=== PATIENT | male | born 1945 | race Caucasian/White ===

== ENCOUNTER 2017-07-29 11:08 | Emergency (ER) | payer MEDICARE, MEDICAID ==
[2017-07-29 11:08] VITALS: BMI 29.2
[2017-07-29 11:23] VITALS: PULSE 89; RESP 16; TEMP 98; O2SAT 99
[2017-07-29] MEDS ORDERED: Lidocaine 1% Inj (20ml) INFIL STA (11:47)
[2017-07-29] MEDS ORDERED: Lidocaine 1% Inj (20ml) ONE (11:52)
--- NOTE | 2017-07-29 12:57 | RAD ---
PROCEDURE: Facial bones HISTORY: fall, facial injury, r/o fx COMPARISON: None TECHNIQUE: Standard protocol for this study/examination. FINDINGS: No visible facial bone fractures or other pathologic findings. IMPRESSION: No acute findings related to/accounting for the clinical presentation.
--- NOTE | 2017-07-29 13:00 | C.PDOC ---
History Of Present Illness 71-year-old male, presents to the emergency department with complaints of mechanical fall yesterday. Patient fell on face and sustained a laceration to lip and chin. Denies any loss of consciousness, dizziness, visual changes, nausea/vomiting or any other associated symptoms. No other complaints at this time. Tetanus vaccine is up to date. Time Seen by Provider: 07/29/17 11:23 Chief Complaint (Nursing): Abnormal Skin Integrity History Per: Patient History/Exam Limitations: no limitations Past Medical History Reviewed: Historical Data, Nursing Documentation, Vital Signs Vital Signs: Last Vital Signs Temp 98 F 07/29/17 11:16 Pulse 89 07/29/17 11:16 Resp 16 07/29/17 11:16 BP 190/84 H 07/29/17 12:51 Pulse Ox 99 07/29/17 18:01 - Medical History PMH: Arthritis, CAD, HTN, Hypercholesterolemia - [facility] Procedures OTHER SKIN & SUBQ I D (12/24/12) TETANUS TOXOID ADMINIST (12/24/12) Family History: States: No Known Family Hx - Social History Hx Tobacco Use: No Hx Alcohol Use: Yes Hx Substance Use: No - Immunization History Hx Tetanus Toxoid Vaccination: Yes (12/24/2012) Hx Influenza Vaccination: No Hx Pneumococcal Vaccination: No Review Of Systems Cardiovascular: Negative for: Chest Pain Respiratory: Negative for: Shortness of Breath Gastrointestinal: Negative for: Vomiting Musculoskeletal: Negative for: Neck Pain, Back Pain Skin: Positive for: Other (laceration s/p fall) Neurological: Negative for: Weakness, Numbness, Altered Mental Status, Headache , Dizziness Physical Exam - Physical Exam Appears: Non-toxic, No Acute Distress Skin: Warm, Dry, No Rash Head: Normacephalic, Laceration (Left chin with 1cm laceration) Eye(s): bilateral: Normal Inspection, PERRL, EOMI Nose: Epistaxis, Other (dried blood in nares. No septal hematoma. ) Oral Mucosa: Moist Lips: Laceration (upper lip w/ .5cm laceration. No intraoral lacerations in mouth. No dental fractures. ) Teeth: No Tender To Palpation Throat: Other (No blood visualized in posterior oropharynx) Neck: Normal ROM, Supple Chest: Symmetrical Cardiovascular: Rhythm Regular, No Murmur Respiratory: Normal Breath Sounds, No Accessory Muscle Use Extremity: Normal ROM Neurological/Psych: Oriented x3, Normal Speech (no focal deficit) ED Course And Treatment O2 Sat by Pulse Oximetry: 99 (on RA) Pulse Ox Interpretation: Normal Progress Note: CT Head and XR facial bones ordered and reviewed. Patient treated with Tylenol. Patient will be discharged to f/u outpatient with ENT. Laceration - Laceration Repair Lip Wound Length (In cm): 0.5 Description Of Wound: Linear Anesthesia: Lidocaine 1% Wound Examination: Irrigated With Saline, No FB With Wound Exploration Wound Closure: Suture (1) Suture Technique And Material Used: Vicryl (5-O) Chin Description Of Wound: Linear Anesthesia: Lidocaine 1% Wound Examination: No FB With Wound Exploration Wound Closure: Suture (1) Suture Technique And Material Used: Nylon (dermal 4-O), Vicryl (subcutaneous 5- O. ) Wound Complexity: Simple Disposition Counseled Patient/Family Regarding: Diagnosis, Need For Followup, Rx Given - Disposition Referrals: Allan Sanchez MD [Medical Doctor] - Butch Saleh MD [Staff Provider] - Disposition: HOME/ ROUTINE Disposition Time: 13:40 Condition: STABLE Additional Instructions: SEGUIMIENTO CON ESPECIALISTA DE GARGANT[place] DE OJOS DE ODO DENTRO DE 1 SEMANA USE MEDICAMENTO SEGN SEA NECESARIO, FINALICE LOS ANTIBITICOS REGRESE AL BRAVO DE EMERGENCIA SI LOS SNTOMAS EMPEORAN Prescriptions: Acetaminophen with Codeine [Tylenol with Codeine #3 Tablet] 1 each PO Q6 PRN # 15 tablet PRN Reason: pain Amoxicillin/Clavulanate [Augmentin 875 MG-125 MG] 1 tab PO BID #14 tab Instructions: Care For Your Stitches (ED), Nosebleed (ED), Facial Laceration ( ED) Forms: [employer] (Italian) Print Language: ITALIAN - POA Present On Arrival: Falls Or Trauma - Clinical Impression Clinical Impression: Lip laceration, Laceration of chin, Epistaxis, Fall - Scribe Statement The provider has reviewed the documentation as recorded by the Scribe (Maddie Monzon) All medical record entries made by the Scribe were at my direction and personally dictated by me. I have reviewed the chart and agree that the record accurately reflects my personal performance of the history, physical exam, medical decision making, and the department course for this patient. I have also personally directed, reviewed, and agree with the discharge instructions and disposition. Provider Attestation: All medical record entries made by the Scribe were at my direction and personally dictated by me. I have reviewed the chart and agree that the record accurately reflects my personal performance of the history, physical exam, medical decision making, and the department course for this patient. I have also personally directed, reviewed, and agree with the discharge instructions and disposition.
--- NOTE | 2017-07-29 13:01 | CT ---
PROCEDURE: CT HEAD WITHOUT CONTRAST. HISTORY: head injury after fall COMPARISON: None available. TECHNIQUE: Axial computed tomography images were obtained through the head/brain without intravenous contrast. Radiation dose: Total exam DLP = 938.64 mGy-cm. This CT exam was performed using one or more of the following dose reduction techniques: Automated exposure control, adjustment of the mA and/or kV according to patient size, and/or use of iterative reconstruction technique. FINDINGS: HEMORRHAGE: No intracranial hemorrhage. BRAIN: No mass effect or edema. No atrophy or chronic microvascular ischemic changes. VENTRICLES: Unremarkable. No hydrocephalus. CALVARIUM: Unremarkable. PARANASAL SINUSES: Unremarkable as visualized. No significant inflammatory changes. MASTOID AIR CELLS: Unremarkable as visualized. No inflammatory changes. OTHER FINDINGS: None. IMPRESSION: No acute intracranial abnormalities. No significant findings to account for the clinical presentation.
[2017-07-29 13:11] VITALS: BP 190/84
[2017-07-29] MEDS ORDERED: Phenylephrine 1% Nasal Spray (15 ml) NAS STA (13:24)
[2017-07-29] MEDS ORDERED: Amoxicillin-Clav 875-125 mg Tab PO STA (13:25)
[2017-07-29] MEDS ORDERED: Amoxicillin-Clav 875-125 mg Tab PO ONE (13:29)
[2017-07-29] MEDS ORDERED: Phenylephrine 1% Nasal Spray (15 ml) ONE (13:30)
[2017-07-29] MEDS ORDERED: Bacitracin 500 Units/gm Oint Foilpak UD TOP ONE (13:38)
[2017-07-29] MEDS ORDERED: Bacitracin 500 Units/gm Oint Foilpak UD ONE (13:46)
== END 2017-07-29 13:56 | disposition home or self-care (01) ==
LOC: C.ER 11:08
DX: S01.511A Laceration without foreign body of lip, initial encounter (principal); S01.81XA Laceration without foreign body of other part of head, initial encounter; W18.30XA Fall on same level, unspecified, initial encounter; R04.0 Epistaxis; I10 Essential (primary) hypertension; E78.00 Pure hypercholesterolemia, unspecified; I25.10 Atherosclerotic heart disease of native coronary artery without angina pectoris

== ENCOUNTER 2018-06-10 04:21 | Emergency (ER) | payer MEDICARE, MEDICAID ==
[2018-06-10 04:21] VITALS: BMI 29.2
--- NOTE | 2018-06-10 04:54 | C.PDOC ---
History Of Present Illness 72-year-old male presents to the ED complaining of right knee pain and swelling, ongoing for months but worsened tonight. Patient denies recent trauma or fall. He states he previously injured the knee in July, and had x-rays demonstrating arthritis but no acute fracture. Patient tried taking Diclofenac at home with minimal relief. Denies any numbness, tingling, or extremity weakness. Additionally patient's blood pressure was found to be elevated on arrival, 214/111. He reports compliance with his medications. Time Seen by Provider: 06/10/18 04:33 Chief Complaint (Nursing): Lower Extremity Problem/Injury History Per: Patient History/Exam Limitations: no limitations Onset/Duration Of Symptoms: Days Current Symptoms Are (Timing): Still Present Additional History Per: Prior Records Past Medical History Reviewed: Historical Data, Nursing Documentation, Vital Signs Vital Signs: Last Vital Signs Temp 98.0 F 06/10/18 04:30 Pulse 111 H 06/10/18 04:30 Resp 16 06/10/18 04:30 BP 214/111 H 06/10/18 04:30 Pulse Ox 98 06/10/18 04:30 - Medical History PMH: Arthritis, CAD, HTN, Hypercholesterolemia - [facility] Procedures OTHER SKIN & SUBQ I D (12/24/12) TETANUS TOXOID ADMINIST (12/24/12) Family History: States: No Known Family Hx - Social History Hx Tobacco Use: No Hx Alcohol Use: Yes Hx Substance Use: No - Immunization History Hx Tetanus Toxoid Vaccination: Yes (12/24/2012) Hx Influenza Vaccination: No Hx Pneumococcal Vaccination: No Review Of Systems Constitutional: Negative for: Fever, Chills Gastrointestinal: Negative for: Abdominal Pain Musculoskeletal: Positive for: Leg Pain (right knee) Skin: Positive for: Lesions. Negative for: Bruising Neurological: Negative for: Weakness, Numbness, Incoordination Physical Exam - Physical Exam Appears: Well, Non-toxic, No Acute Distress Skin: Warm, Dry, No Rash Head: Atraumatic, Normacephalic Eye(s): bilateral: Normal Inspection Oral Mucosa: Moist Neck: Normal ROM Chest: Symmetrical Respiratory: No Accessory Muscle Use, Other (speaking in full sentences) Extremity: Normal ROM (with good flexion and extension of the right knee, ambulates with a cane -- at baseline per patient), Pedal Edema (mild), Capillary Refill (less than 2 sec), No Deformity, Swelling (minimal swelling to the right knee) Pulses: Left Dorsalis Pedis: Normal, Right Dorsalis Pedis: Normal Neurological/Psych: Oriented x3, Normal Speech Gait: With Assistance (cane) ED Course And Treatment O2 Sat by Pulse Oximetry: 98 (on room air) Pulse Ox Interpretation: Normal Medical Decision Making Medical Decision Making: Impression: Right knee pain Initial Plan: --Tramadol 50 mg PO --Norvasc 5 mg PO Disposition Counseled Patient/Family Regarding: Diagnosis, Need For Followup, Rx Given - Disposition Referrals: Allan Sanchez MD [Medical Doctor] - Livia Monzon MD [Staff Provider] - Disposition: HOME/ ROUTINE Disposition Time: 05:50 Condition: STABLE Additional Instructions: [place] Motrin o Aleve segn sea necesario para el dolor cada 6 horas, con alimentos que no molesten el estmago. [place] tramadol para el dolor ms adan. Neelima un seguimiento con ortopedia si el dolor persiste chaitanya brooks semana. Prescriptions: traMADol [Ultram] 50 mg PO Q8 #20 tab Instructions: Knee Pain (DC) Print Language: FRENCH - POA Present On Arrival: None - Clinical Impression Clinical Impression: Arthritis, Knee pain - PA / [employer] / Resident Statement MD/DO has reviewed & agrees with the documentation as recorded. - Scribe Statement The provider has reviewed the documentation as recorded by the Scribe (Ellie Ricketts) All medical record entries made by the Scribe were at my direction and personally dictated by me. I have reviewed the chart and agree that the record accurately reflects my personal performance of the history, physical exam, medical decision making, and the department course for this patient. I have also personally directed, reviewed, and agree with the discharge instructions and disposition.
[2018-06-10 05:18] VITALS: RESP 14
[2018-06-10 05:50] VITALS: BP 227/80; PULSE 66; TEMP 98.4
[2018-06-10 05:52] VITALS: O2SAT 98
== END 2018-06-10 06:11 | disposition home or self-care (01) ==
LOC: C.ER 04:21
DX: M25.561 Pain in right knee (principal); M17.11 Unilateral primary osteoarthritis, right knee; E78.00 Pure hypercholesterolemia, unspecified; I10 Essential (primary) hypertension; I25.10 Atherosclerotic heart disease of native coronary artery without angina pectoris